=== PATIENT | female | born 1950 | race Caucasian/White ===

== ENCOUNTER 2022-07-03 11:40 | Inpatient (IN) | payer MEDICARE ==
[2022-07-03 12:28] LABS: ALT (SGPT) 17 U/L (8-55); AST (SGOT) 44 U/L (5-34); Albumin 3.9 g/dL (3.4-4.8); Alkaline Phosphatase 75 U/L (40-110); Anion Gap 17 mmol/L (10-20); BUN (Urea Nitrogen) 56 mg/dL (9.8-20.1); Bilirubin, Total 0.5 mg/dL (0.2-1.2); CK (CPK) 660 U/L (29-168); Calc. Creatinine Clearance 0 mL/min (70-130); Calcium 9.3 mg/dL (7.8-10.44); Carbon Dioxide 20 mmol/L (23-31); Chloride 102 mmol/L (98-107); Estimated GFR 41; Globulin 3.3 g/dL (2.4-3.5); Glucose 171 mg/dL (83-110); Lipase 17 U/L (8-78); Protein, Total 7.2 g/dL (5.8-8.1); Sodium 137 mmol/L (136-145)
[2022-07-03 12:32] LABS: #Monocytes 1.6 10x3/uL (0.0-1.1); #Neutrophils 12.6 10x3/uL (1.5-8.4); %Basophils 0.3 % (0.0-2.0); %Eosinophils 0.1 % (0.0-6.0); %Lymphocytes 4.7 % (18.0-47.0); %Monocytes 10.5 % (0.0-10.0); Hemoglobin 15.3 g/dL (12.0-15.5); Mean Corpuscular HGB CONC 35.2 g/dL (32.0-36.0); Mean Corpuscular Hemoglobin 30.8 pg (27.0-33.0); Mean Corpuscular Volume 87.5 fl (81.6-98.3); Mean Platelet Volume 9.1 fl (7.4-10.4); Platelet Count 435 10x3/uL (150-450); RBC Distribution Width 14.3 % (11.5-14.5); Red Blood Cell (RBC) Count 4.97 10x6/uL (3.90-5.03)
[2022-07-03 12:42] LABS: Potassium 2.3 mmol/L (3.5-5.1)
[2022-07-03 12:47] LABS: SARS-CoV-2 NAA Rapid Test Not Detected (NotDetected)
[2022-07-03 12:52] LABS: CKMB 14.9 ng/mL (0-6.6)
[2022-07-03] MEDS ORDERED: Aspirin Chewable 81 MG TAB ONE (12:52)
[2022-07-03] MEDS ORDERED: Potassium Chloride 20 MEQ TAB ONE (12:52)
[2022-07-03] MEDS ORDERED: Potassium Chloride 20 MEQ/100 ML PREMIX BAG ONE (12:53)
[2022-07-03 13:02] LABS: Magnesium 2.6 mg/dL (1.6-2.6)
[2022-07-03] MEDS ORDERED: Magnesium 2 GM/50 ML BAG (IN WATER) ONE (13:26)
[2022-07-03] MEDS ORDERED: Ondansetron PF 4 MG/2 ML Vial IVP PRN (15:18)
[2022-07-03] MEDS ORDERED: Acetaminophen 325 MG TAB PO PRN (15:18)
[2022-07-03] MEDS ORDERED: Ondansetron ODT 4 MG TAB PO PRN (15:18)
[2022-07-03] MEDS ORDERED: Benzonatate 100 MG CAP PO PRN (15:21)
[2022-07-03] MEDS ORDERED: hydrALAZINE 20 MG/ML VIAL SLOW IVP PRN (15:22)
[2022-07-03] MEDS ORDERED: Sodium Chloride 0.9% 1,000 ML IV SCH (15:30)
[2022-07-03 15:48] LABS: Troponin I 0.103 ng/mL (< 0.028)
[2022-07-03 16:05] LABS: Bilirubin Neg (Negative); Blood, Urine 10 (Negative); Clarity Clear (Clear); Glucose, Urine (Dipstick) Normal (Negative); Ketone, Urine 5 mg/dL (Negative); Leukocyte 25 (Negative); Nitrite Negative (Negative); Protein, Urine (Dipstick) 30 mg/dl (Neg-Trace); Specific Gravity, Urine 1.015 (1.002-1.036); Urobilinogen Normal mg/dL (Less than 2)
[2022-07-03 16:18] LABS: Bacteria/HPF Rare-Few HPF (None Seen); RBC/HPF 0-3 HPF (0-3); Squamous Epithelial 0-3 HPF (0-3); WBC/HPF 0-3 HPF (0-3)
[2022-07-03 16:19] LABS: Red Blood Cell Cast 0-3 LPF (None Seen); White Blood Cell Cast 0-3 LPF (None Seen)
[2022-07-03 17:40] LABS: CKMB 14.5 ng/mL (0-6.6)
[2022-07-03 20:39] LABS: Anion Gap 12 mmol/L (10-20); BUN (Urea Nitrogen) 40 mg/dL (9.8-20.1); Calc. Creatinine Clearance 0 mL/min (70-130); Calcium 8.2 mg/dL (7.8-10.44); Carbon Dioxide 18 mmol/L (23-31); Chloride 111 mmol/L (98-107); Estimated GFR 71; Glucose 98 mg/dL (83-110); Potassium 3.2 mmol/L (3.5-5.1); Sodium 138 mmol/L (136-145)
[2022-07-03 21:15] LABS: CKMB 14.3 ng/mL (0-6.6)
[2022-07-03] MEDS ORDERED: Enoxaparin Sodium 80 MG/0.8 ML SYRINGE SC SCH (21:30)
[2022-07-03] MEDS: Sodium Chloride 0.9% 1,000 ML IV SCH ×2 (21:33→21:34)
[2022-07-03 22:01] VITALS: BMI 12.9
[2022-07-03] MEDS: Atorvastatin Calcium 10 MG TAB PO SCH (22:33)
[2022-07-03] MEDS: Nicotine 14 MG PATCH TD SCH (22:33)
[2022-07-03] MEDS: Famotidine 20 MG TAB PO SCH (22:34)
[2022-07-04 04:09] LABS: #Eosinphils 0.1 10x3/uL (0.0-0.5); #Monocytes 1.5 10x3/uL (0.0-1.1); #Neutrophils 12.5 10x3/uL (1.5-8.4); %Basophils 0.1 % (0.0-2.0); %Eosinophils 0.3 % (0.0-6.0); %Lymphocytes 7.2 % (18.0-47.0); %Monocytes 9.7 % (0.0-10.0); %Neutrophils 82.3 % (40.0-75.0); Hemoglobin 13.6 g/dL (12.0-15.5); Mean Corpuscular HGB CONC 34.7 g/dL (32.0-36.0); Mean Corpuscular Hemoglobin 30.4 pg (27.0-33.0); Mean Corpuscular Volume 87.5 fl (81.6-98.3); Mean Platelet Volume 9.4 fl (7.4-10.4); Platelet Count 357 10x3/uL (150-450); RBC Distribution Width 14.4 % (11.5-14.5); Red Blood Cell (RBC) Count 4.48 10x6/uL (3.90-5.03); White Blood Cell (WBC) Count 15.2 10x3/uL (3.5-10.5)
[2022-07-04] MEDS: Loperamide HCl 2 MG CAP PO PRN (04:29)
[2022-07-04 04:37] LABS: ALT (SGPT) 16 U/L (8-55); AST (SGOT) 42 U/L (5-34); Alkaline Phosphatase 62 U/L (40-110); Anion Gap 14 mmol/L (10-20); BUN (Urea Nitrogen) 29 mg/dL (9.8-20.1); Bilirubin, Total 0.5 mg/dL (0.2-1.2); CK (CPK) 490 U/L (29-168); Calc. Creatinine Clearance 32 mL/min (70-130); Calcium 7.8 mg/dL (7.8-10.44); Carbon Dioxide 16 mmol/L (23-31); Chloride 112 mmol/L (98-107); Estimated GFR 84; Globulin 2.8 g/dL (2.4-3.5); Glucose 89 mg/dL (83-110); Magnesium 2.5 mg/dL (1.6-2.6); Potassium 3.2 mmol/L (3.5-5.1); Protein, Total 5.8 g/dL (5.8-8.1); Sodium 139 mmol/L (136-145)
[2022-07-04 04:46] LABS: Phosphorus 1.1 mg/dL (2.3-4.7)
[2022-07-04] MEDS ORDERED: Heparin 5,000 UNITS/ML VIAL SC SCH (06:00)
[2022-07-04] MEDS ORDERED: Potassium Phosphate 30 MMOL in Sodium Chloride 0.9% 250 ML 250 ML IVPB SCH (06:15)
[2022-07-04] MEDS: Sodium Chloride 0.9% 1,000 ML IV SCH (08:11)
[2022-07-04] MEDS: Lactated Ringer's 1,000 ML IV SCH ×2 (08:49→22:30)
[2022-07-04] MEDS ORDERED: Sodium Chloride 0.9% 1,000 ML IV SCH (09:00)
[2022-07-04] MEDS: Amlodipine 5 MG TAB PO SCH (09:37)
[2022-07-04] MEDS: Aspirin 81 mg Enteric Coated Tablet PO SCH (09:38)
[2022-07-04] MEDS: Heparin 5,000 UNITS/ML VIAL SC SCH ×3 (09:40→19:58)
[2022-07-04 11:52] LABS: CKMB 8.6 ng/mL (0-6.6)
[2022-07-04 13:55] LABS: Hemoglobin A1c 5.6 % (4.0-6.0)
[2022-07-04] MEDS: Nicotine 14 MG PATCH TD SCH (16:21)
[2022-07-04] MEDS: Potassium Chloride 20 MEQ TAB PO SCH (16:21)
[2022-07-04] MEDS: Famotidine 20 MG TAB PO SCH (19:58)
[2022-07-04] MEDS: Atorvastatin Calcium 10 MG TAB PO SCH (19:59)
[2022-07-05 01:03] VITALS: TEMP 97.9
[2022-07-05 03:45] LABS: #Eosinphils 0.1 10x3/uL (0.0-0.5); #Monocytes 1.1 10x3/uL (0.0-1.1); #Neutrophils 9.4 10x3/uL (1.5-8.4); %Basophils 0.2 % (0.0-2.0); %Eosinophils 0.4 % (0.0-6.0); %Lymphocytes 8.9 % (18.0-47.0); %Monocytes 9.1 % (0.0-10.0); %Neutrophils 81.1 % (40.0-75.0); Hemoglobin 12.4 g/dL (12.0-15.5); Mean Corpuscular HGB CONC 34.8 g/dL (32.0-36.0); Mean Corpuscular Hemoglobin 30.5 pg (27.0-33.0); Mean Corpuscular Volume 87.7 fl (81.6-98.3); Mean Platelet Volume 9.2 fl (7.4-10.4); Platelet Count 344 10x3/uL (150-450); RBC Distribution Width 14.6 % (11.5-14.5); Red Blood Cell (RBC) Count 4.06 10x6/uL (3.90-5.03); White Blood Cell (WBC) Count 11.6 10x3/uL (3.5-10.5)
[2022-07-05 04:21] LABS: Anion Gap 10 mmol/L (10-20); BUN (Urea Nitrogen) 15 mg/dL (9.8-20.1); Calc. Creatinine Clearance 33 mL/min (70-130); Calcium 7.6 mg/dL (7.8-10.44); Carbon Dioxide 21 mmol/L (23-31); Chloride 111 mmol/L (98-107); Estimated GFR 90; Glucose 89 mg/dL (83-110); Magnesium 1.8 mg/dL (1.6-2.6); Sodium 138 mmol/L (136-145)
[2022-07-05] MEDS: Aspirin 81 mg Enteric Coated Tablet PO SCH (08:35)
[2022-07-05] MEDS: Loperamide HCl 2 MG CAP PO PRN (08:35)
[2022-07-05] MEDS: Amlodipine 5 MG TAB PO SCH (08:35)
[2022-07-05] MEDS: Lactated Ringer's 1,000 ML IV SCH (08:35)
[2022-07-05] MEDS: Potassium Chloride 20 MEQ TAB PO SCH (08:35)
[2022-07-05] MEDS: Heparin 5,000 UNITS/ML VIAL SC SCH (08:36)
[2022-07-05] MEDS ORDERED: Nystatin 500,000 UNITS/5 ML UDCUP SSW SCH (14:00)
[2022-07-05 14:28] VITALS: BP 112/51
== END 2022-07-05 14:28 | disposition home or self-care (01) | DRG 565 ==
LOC: CSHERS 11:40 → SUATTDRO 11:40 → CSHERHOLD 16:30 → OBSVTOIN 16:30 → CSHIMCU 19:20
PROVIDERS: ADMIT Family Medicine; ATTEND Internal Medicine
DX: T79.6XXA Traumatic ischemia of muscle, initial encounter (principal); I24.8 Other forms of acute ischemic heart disease; N17.9 Acute kidney failure, unspecified; E86.0 Dehydration; E87.6 Hypokalemia; J44.9 Chronic obstructive pulmonary disease, unspecified; E78.5 Hyperlipidemia, unspecified; F41.8 Other specified anxiety disorders; I10 Essential (primary) hypertension; F17.210 Nicotine dependence, cigarettes, uncomplicated; F03.90 Unspecified dementia, unspecified severity, without behavioral disturbance, psychotic disturbance, mood disturbance, and anxiety; R53.1 Weakness; R41.3 Other amnesia; Z90.710 Acquired absence of both cervix and uterus; Z98.890 Other specified postprocedural states; Z85.43 Personal history of malignant neoplasm of ovary; Z88.2 Allergy status to sulfonamides; Z71.6 Tobacco abuse counseling; Z88.5 Allergy status to narcotic agent; Z91.041 Radiographic dye allergy status; Z79.899 Other long term (current) drug therapy; Z20.822 Contact with and (suspected) exposure to COVID-19
CPT/HCPCS: 36415; 70450; 71045; 74176; 80048; 80053; 80061; 81003; 81015; 82550; 82553; 83036; 83605; 83690; 83735; 84100; 84443; 84484; 85025; 87086; 93005; 93010; 93306; 94760; 96365; 96366; 96368; J0360; J1644; J2405; J3475; J3480; J7050; J7120